=== PATIENT | female | born 1955 | race Caucasian/White ===

== ENCOUNTER 2021-04-02 10:02 | Outpatient (REF) | payer MEDICARE, SELFPAY ==
--- NOTE | ~2021-04-02 | XR_ITS ---
EXAMINATION: XR CHEST CLINICAL INFORMATION: Acute bronchitis. COMPARISON: None TECHNIQUE: 2 views of the chest were obtained. FINDINGS: The lungs are clear. The cardiomediastinal silhouette is normal in size. There is no pleural effusion or pneumothorax. No acute osseous abnormality. XR/XR chest 2V IMPRESSION: No acute cardiopulmonary findings.
[2021-04-02 11:23] LABS: Hemoglobin 15.6 g/dl (12.0-16.0); Mean Corpuscular HGB Conc 33.2 g/dl (31.0-35.0); Mean Corpuscular Hemoglobin 31.9 pg (27.0-33.0); Mean Corpuscular Volume 96.1 fL (80-98); Mean Platelet Volume 10.2 fL (9.4-12.3); Platelet Count 225 X10*3/uL (160-400); Red Blood Count 4.89 X10*6/uL (4.20-5.50); Red Cell Distribution Width 12.7 % (11.0-16.0); White Blood Count 8.5 X10*3/uL (4.8-10.8)
[2021-04-02 12:31] LABS: Anion Gap 15 (12-20); Blood Urea Nitrogen 10 mg/dL (9-16); Carbon Dioxide 27 mmol/L (22-29); Chloride 102 mmol/L (96-108); Estimated Glomerular Filt Rate > 60; Glucose Random 124 mg/dL (60-115); Potassium 4.9 mmol/L (3.3-5.1); Sodium 139 mmol/L (135-145)
== END 2021-04-02 10:03 | disposition home or self-care (01) ==
LOC: HO.HMGCX 10:02
PROVIDERS: PCP Internal Medicine; Visit Provider Physician Assistant
DX: J20.9 Acute bronchitis, unspecified (principal); I10 Essential (primary) hypertension
CPT/HCPCS: 36415; 71046; 80048; 85027

== ENCOUNTER 2021-04-30 13:49 | Outpatient (REF) | payer MEDICARE, SELFPAY ==
--- NOTE | ~2021-04-30 | XR_ITS ---
EXAMINATION: XR CHEST CLINICAL INFORMATION: Localized swelling, mass and lump COMPARISON: Chest 04/02/2021 TECHNIQUE: 2 views of the chest were obtained. FINDINGS: No significant abnormality is noted involving the heart, lungs, mediastinum, bony thorax or soft tissues. XR/XR chest 2V IMPRESSION: Unremarkable chest examination.
== END 2021-04-30 13:50 | disposition home or self-care (01) ==
LOC: HO.HMGCX 13:49
PROVIDERS: PCP Internal Medicine; Visit Provider Internal Medicine
DX: Z13.89 Encounter for screening for other disorder (principal)
CPT/HCPCS: 71046

== ENCOUNTER 2022-02-12 23:24 | Emergency (ER) | payer MEDICARE, SELFPAY ==
--- NOTE | ~2022-02-12 | XR_ITS ---
EXAMINATION: XR FOOT, RIGHT CLINICAL INFORMATION: Injury COMPARISON: None TECHNIQUE: AP, lateral, and oblique views of the right foot. FINDINGS: There is a fracture of the fourth digit proximal phalanx seen best on the oblique view. No intra-articular extension. Joint spaces are maintained. Mild soft tissue swelling . XR/XR foot RT 2V IMPRESSION: Fracture of the fourth digit proximal phalanx.
[2022-02-13 00:15] VITALS: BP 144/60; PULSE 64; RESP 18; TEMP 36.8; O2SAT 96; BMI 29.2
--- NOTE | 2022-02-13 04:22 | ED.LOWEXIN ---
HPI - Extremity Injury (Lower) General Chief Complaint: Extremity Injury, Lower Stated Complaint: broken toe R foot ? Time Seen by Provider: 02/13/22 04:22 Source: patient Mode of arrival: ambulatory Limitations: no limitations History of Present Illness HPI Narrative: While walking patient stubbed her right 4th toe into the baseboard complaining of pain in the right 4th toe no other injury Related Data Home Medications Medication Instructions Recorded Confirmed atenolol 50 mg tablet 50 mg PO DAILY 03/21/21 04/02/21 blood sugar diagnostic (OneTouch #10 ea 03/21/21 04/02/21 Verio test strips) cholecalciferol (vitamin D3) 25 25 mcg PO DAILY 03/21/21 04/02/21 mcg (1,000 unit) capsule clonazepam 0.5 mg tablet 0.5 mg PO TID PRN anxiety 03/21/21 04/02/21 metformin 500 mg tablet 500 mg PO BID 03/21/21 04/02/21 simvastatin 20 mg/5 mL (4 mg/mL) 20 mg PO BEDTIME 03/21/21 04/02/21 oral suspension Previous Rx's Medication Instructions Recorded amoxicillin 875 mg-potassium 1 tab PO BID #20 tabs 03/21/21 clavulanate 125 mg tablet (Augmentin) prednisone 20 mg tablet 20 mg PO .COMPLEX #18 tabs 03/21/21 azithromycin 250 mg tablet See Rx Instructions PO .COMPLEX #6 04/02/21 tabs Allergies Allergy/AdvReac Type Severity Reaction Status Date / Time tetracycline Allergy nausea Verified 04/30/21 13:20 Review of Systems Review of Systems: Yes all other systems are reviewed and are negative [facility] Social History Social History Advance Directives: No Advance Directives Information Provided: No Physical Exam Vital Signs: Vital Signs: Last Vital Signs Temp 98.3 F 02/13/22 00:15 Pulse 64 02/13/22 00:15 Resp 18 02/13/22 00:15 BP 144/60 H 02/13/22 00:15 Pulse Ox 96 02/13/22 00:15 O2 Del Method 02/13/22 00:15 BMI result Body Mass Index 29.2 Const: General: comfortable and no acute distress Extrem: Ankle/foot/toe images: 1. Tenderness at the base of right foot toe with slight swelling no obvious deformity neurovascular intact Procedures Orthopedic Splinting/Casting Injury #1: Lower Extremity Injury Location: toe Lower Extremity Immobilizer: april tape (Right 4th and 5th toe) Discharge Plan Discharge Clinical Impression: Toe fracture Patient Disposition: Home, Self-Care Instructions: Toe Fracture (ED) Additional Instructions: Apply april tape as advised Tylenol/ibuprofen for pain Prescriptions: No Action azithromycin 250 mg tablet See Rx Instructions PO .COMPLEX Qty: 6 0RF Rx Instructions: take 500 mg today (day 1), then 250 mg for 4 days (days 2-5) PO (DME) OneTouch Verio test strips Strip See Rx Instructions Not Applicable BID Qty: 10 Rx Instructions: As directed clonazepam 0.5 mg tablet 0.5 mg PO TID PRN (Reason: anxiety) atenolol 50 mg tablet 50 mg PO DAILY metformin 500 mg tablet 500 mg PO BID simvastatin 20 mg/5 mL (4 mg/mL) suspension 20 mg PO BEDTIME cholecalciferol (vitamin D3) 25 mcg (1,000 unit) capsule 25 mcg PO DAILY prednisone 20 mg tablet 20 mg PO .COMPLEX Qty: 18 0RF Rx Instructions: 20 mg PO 3 p.o. daily for 3 days followed by 2 p.o. daily for 3 days followed by 1 p.o. daily for 3 days; amoxicillin-pot clavulanate [Augmentin] 875-125 mg tablet 1 tab PO BID Qty: 20 0RF
--- NOTE | 2022-02-13 04:35 | PC.NURSE ---
This RN did not see this Pt.
== END 2022-02-13 04:36 | disposition home or self-care (01) ==
PROVIDERS: Emergency Provider Internal Medicine; PCP Physician Assistant
DX: S92.911A Unspecified fracture of right toe(s), initial encounter for closed fracture (principal); Y29.XXXA Contact with blunt object, undetermined intent, initial encounter; Y93.9 Activity, unspecified; Y92.009 Unspecified place in unspecified non-institutional (private) residence as the place of occurrence of the external cause; Y99.9 Unspecified external cause status; Z79.899 Other long term (current) drug therapy
CPT/HCPCS: 73620; 99282; 99283

== ENCOUNTER 2022-05-20 19:54 | Emergency (ER) | payer MEDICARE, SELFPAY ==
--- NOTE | ~2022-05-20 | XR_ITS ---
EXAMINATION: XR CHEST CLINICAL INFORMATION: Chest tightness. COMPARISON: 04/30/2021 chest radiographs. TECHNIQUE: Frontal view of the chest was obtained. FINDINGS: No significant abnormality is noted involving the heart, lungs, mediastinum, bony thorax or soft tissues. XR/XR chest 1V IMPRESSION: No acute cardiopulmonary process.
--- NOTE | 2022-05-20 19:58 | ECG_ITS ---
Test Reason : PALPITATIONS Blood Pressure : / mmHG Vent. Rate : 064 BPM Atrial Rate : 064 BPM P-R Int : 140 ms QRS Dur : 082 ms QT Int : 420 ms P-R-T Axes : 063 046 037 degrees QTc Int : 433 ms Normal sinus rhythm Normal ECG No previous ECGs available Referred By: Generic ED Physician Electronically Signed By:AMANDA SIMPSON
[2022-05-20 20:50] VITALS: BP 147/53; PULSE 63; RESP 16; TEMP 37.2; O2SAT 96; BMI 27.4
[2022-05-20 21:11] LABS: MANUAL DIFF FLAG NO
[2022-05-20 21:14] LABS: Basophils Percent Auto 0.4 % (0-2); Eosinophils Percent Auto 0.2 % (0-4); Hematocrit 43.4 % (37.0-47.0); Hemoglobin 14.8 g/dl (12.0-16.0); Imm Gran Abs Auto 0.02 X10*3/uL (0.00-0.03); Imm Gran Pct Auto 0.2 % (0.0-0.4); Lymphocytes Absolute Auto 3.9 X10*3/uL (1.2-4.9); Lymphocytes Percent Auto 41.4 % (20-40); Mean Corpuscular HGB Conc 34.1 g/dl (31.0-35.0); Mean Corpuscular Volume 93.9 fL (80.0-98.0); Monocytes Absolute Auto 0.7 X10*3/uL (0.1-1.2); Monocytes Percent Auto 7.5 % (2-11); Neutrophils Absolute Auto 4.8 x10*3/uL (2.0-8.3); Neutrophils Percent Auto 50.3 % (45-73); Platelet Count 224 X10*3/uL (160-400); Red Blood Count 4.62 X10*6/uL (4.20-5.50); Red Cell Distribution Width 12.5 % (11.0-16.0); White Blood Count 9.5 X10*3/uL (4.8-10.8)
[2022-05-20 21:22] LABS: D Dimer High Sensitivity 167 NG/ML
[2022-05-20 21:30] LABS: Alanine Aminotransferase 21 U/L (0-31); Albumin Level 4.5 g/dL (3.5-5.0); Alkaline Phosphatase 46 U/L (39-117); Anion Gap 17 (12-20); Aspartate Amino Transferase 17 U/L (5-31); Bilirubin Total 0.3 mg/dL (0.0-1.0); Blood Urea Nitrogen 17 mg/dL (9-16); Calcium 9.7 mg/dL (8.4-10.2); Carbon Dioxide 27 mmol/L (22-29); Chloride 101 mmol/L (96-108); Creatinine Clr Calc Pharmacy 53.6; Estimated Glomerular Filt Rate 56; Glucose Random 121 mg/dL (60-115); Magnesium 2.2 mg/dL (1.6-2.6); Potassium 4.2 mmol/L (3.3-5.1); Sodium 141 mmol/L (135-145); Total Protein 7.1 g/dL (6.5-8.0)
[2022-05-20 21:36] LABS: Troponin-I High Sensitivity < 3.5 ng/L (<3.5-17.0)
[2022-05-21 00:21] VITALS: BP 147/56; PULSE 60; RESP 16; TEMP 36.7; O2SAT 98
[2022-05-21 01:17] LABS: Troponin-I High Sensitivity < 3.5 ng/L (<3.5-17.0)
[2022-05-21 03:13] VITALS: BP 132/64; PULSE 51; RESP 16; TEMP 36.7; O2SAT 98
--- NOTE | 2022-05-21 03:36 | ED_ITS ---
HPI - Arrhythmia/Palpitations General Chief Complaint: Arrhythmia/Palpitations Stated Complaint: Palpitations/Chest tightness Time Seen by Provider: 05/21/22 03:36 Source: patient Mode of arrival: ambulatory Limitations: no limitations History of Present Illness HPI narrative: Patient has history of anxiety doses of Klonopin has been decreased lately feel more anxious complaining of heartbeats in our ER checked her blood pressure fluctuating from 160 to 140 systolic and 80-70 diastolic feels sometimes chest tightness sometimes dizzy unable to sleep last few nights Related Data Home Medications Medication Instructions Recorded Confirmed atenolol 50 mg tablet 50 mg PO DAILY 03/21/21 04/02/21 blood sugar diagnostic (OneTouch #10 ea 03/21/21 04/02/21 Verio test strips) cholecalciferol (vitamin D3) 25 25 mcg PO DAILY 03/21/21 04/02/21 mcg (1,000 unit) capsule clonazepam 0.5 mg tablet 0.5 mg PO TID PRN anxiety 03/21/21 04/02/21 metformin 500 mg tablet 500 mg PO BID 03/21/21 04/02/21 simvastatin 20 mg/5 mL (4 mg/mL) 20 mg PO BEDTIME 03/21/21 04/02/21 oral suspension Previous Rx's Medication Instructions Recorded amoxicillin 875 mg-potassium 1 tab PO BID #20 tabs 03/21/21 clavulanate 125 mg tablet (Augmentin) prednisone 20 mg tablet 20 mg PO .COMPLEX #18 tabs 03/21/21 azithromycin 250 mg tablet See Rx Instructions PO .COMPLEX #6 04/02/21 tabs hydroxyzine HCl 25 mg tablet 25 mg PO BID PRN anxiety #30 tabs 05/21/22 Allergies Allergy/AdvReac Type Severity Reaction Status Date / Time tetracycline Allergy nausea Verified 05/20/22 20:56 Review of Systems Review of Systems: Yes all other systems are reviewed and are negative PMF[facility] Social History Social History Advance Directives: No Physical Exam Vital Signs: Vital Signs: Last Vital Signs Temp 98.0 F 05/21/22 03:13 Pulse 51 05/21/22 03:13 Resp 16 05/21/22 03:13 BP 132/64 05/21/22 03:13 Pulse Ox 98 05/21/22 03:13 O2 Del Method 05/21/22 03:13 BMI result Body Mass Index 27.4 Appearance: Alert. Oriented X3. No acute distress. Anxious Eyes: PERRLA, No Nystagmus ENT: Pharynx normal. Oral Mucosa moist Neck: Normal inspection. Neck supple. CVS: Normal heart rate and rhythm. Pulses normal. Respiratory: No respiratory distress. Equal air entry bilateral, no wheezing/rales/rhonchi Abdomen: Soft and nontender. Bowel sounds are present, no mass palpable, no CVA tenderness Skin: Skin warm and dry. Normal skin color. Normal skin turgor. Extremities: No lower extremity edema. No calf tenderness Neuro: Oriented X 3. No motor deficit. No sensory deficit.No cerebellar signs , cranial nerves II-XII intact MDM - Arrhythmia/Palpitations MDM Narrative Medical decision making narrative: Patient with increased anxiety for sleep fluctuating blood pressure in the ER blood pressure is 132/64 a palpitation noticed no cardiac arrhythmias EKG normal 2 sets of troponin negative discharge patient home advised to start taking Atarax and follow-up with PCP Lab Data Attestation: I reviewed the patient's lab results. Result diagrams: 05/20/22 21:04 05/20/22 21:04 Labs: Lab Results 05/20/22 05/20/22 05/20/22 Range/Units 21:04 21:04 21:04 WBC 9.5 (4.8-10.8) X10*3/uL RBC 4.62 (4.20-5.50) X10*6/uL Hgb 14.8 (12.0-16.0) g/dl Hct 43.4 (37.0-47.0) % MCV 93.9 (80.0-98.0) fL MCH 32.0 (27.0-33.0) pg MCHC 34.1 (31.0-35.0) g/dl RDW 12.5 (11.0-16.0) % Plt Count 224 (160-400) X10*3/uL MPV 10.0 (9.4-12.3) fL Immature Gran % (Auto) 0.2 (0.0-0.4) % Neut % (Auto) 50.3 (45-73) % Lymph % (Auto) 41.4 H (20-40) % Edmunds % (Auto) 7.5 (2-11) % Eos % (Auto) 0.2 (0-4) % Baso % (Auto) 0.4 (0-2) % Lymph # (Auto) 3.9 (1.2-4.9) X10*3/uL Edmunds # (Auto) 0.7 (0.1-1.2) X10*3/uL Eos # (Auto) 0.0 (0.0-0.4) X10*3/uL Baso # (Auto) 0.0 (0.0-0.2) X10*3/uL Abs Immat Gran (auto) 0.02 (0.00-0.03) X10*3/uL Absolute Neuts (auto) 4.8 (2.0-8.3) x10*3/uL Absolute Nucleated RBC 0.000 (0.0-0.012) X10*3/uL Nucleated RBC % (auto) 0.0 (0.0-0.2) /100WBC D-Dimer High Sensitivty 167 NG/ML Sodium 141 (135-145) mmol/L Potassium 4.2 (3.3-5.1) mmol/L Chloride 101 (96-108) mmol/L Carbon Dioxide 27 (22-29) mmol/L Anion Gap 17 (12-20) BUN 17 H (9-16) mg/dL Creatinine 0.98 (0.5-1.4) mg/dL Estim Creat Clear Calc 53.6 Estimated GFR 56 Random Glucose 121 H (60-115) mg/dL Calcium 9.7 (8.4-10.2) mg/dL Magnesium 2.2 (1.6-2.6) mg/dL Total Bilirubin 0.3 (0.0-1.0) mg/dL AST 17 (5-31) U/L ALT 21 (0-31) U/L Alkaline Phosphatase 46 (39-117) U/L Troponin I High Sens (<3.5-17.0) ng/L Total Protein 7.1 (6.5-8.0) g/dL Albumin 4.5 (3.5-5.0) g/dL 05/20/22 05/21/22 Range/Units 21:04 00:39 WBC (4.8-10.8) X10*3/uL RBC (4.20-5.50) X10*6/uL Hgb (12.0-16.0) g/dl Hct (37.0-47.0) % MCV (80.0-98.0) fL MCH (27.0-33.0) pg MCHC (31.0-35.0) g/dl RDW (11.0-16.0) % Plt Count (160-400) X10*3/uL MPV (9.4-12.3) fL Immature Gran % (Auto) (0.0-0.4) % Neut % (Auto) (45-73) % Lymph % (Auto) (20-40) % Edmunds % (Auto) (2-11) % Eos % (Auto) (0-4) % Baso % (Auto) (0-2) % Lymph # (Auto) (1.2-4.9) X10*3/uL Edmunds # (Auto) (0.1-1.2) X10*3/uL Eos # (Auto) (0.0-0.4) X10*3/uL Baso # (Auto) (0.0-0.2) X10*3/uL Abs Immat Gran (auto) (0.00-0.03) X10*3/uL Absolute Neuts (auto) (2.0-8.3) x10*3/uL Absolute Nucleated RBC (0.0-0.012) X10*3/uL Nucleated RBC % (auto) (0.0-0.2) /100WBC D-Dimer High Sensitivty NG/ML Sodium (135-145) mmol/L Potassium (3.3-5.1) mmol/L Chloride (96-108) mmol/L Carbon Dioxide (22-29) mmol/L Anion Gap (12-20) BUN (9-16) mg/dL Creatinine (0.5-1.4) mg/dL Estim Creat Clear Calc Estimated GFR Random Glucose (60-115) mg/dL Calcium (8.4-10.2) mg/dL Magnesium (1.6-2.6) mg/dL Total Bilirubin (0.0-1.0) mg/dL AST (5-31) U/L ALT (0-31) U/L Alkaline Phosphatase (39-117) U/L Troponin I High Sens < 3.5 < 3.5 (<3.5-17.0) ng/L Total Protein (6.5-8.0) g/dL Albumin (3.5-5.0) g/dL ECG Data Attestation: I personally reviewed and interpreted this ECG as follows: Interpretation: No sinus rhythm heart rate 64 beats per minute normal intervals normal axis no acute ST changes Discharge Plan Discharge Clinical Impression: Anxiety, Benign essential HTN Patient Disposition: Home, Self-Care Instructions: Chronic Hypertension (ED), Anxiety (ED) Additional Instructions: [place] Klonopin and start taking Atarax for sleep Check blood pressure daily and follow with PCP it should be less than 135/85 Prescriptions: New hydroxyzine HCl 25 mg tablet 25 mg PO BID PRN (Reason: anxiety) Qty: 30 0RF No Action azithromycin 250 mg tablet See Rx Instructions PO .COMPLEX Qty: 6 0RF Rx Instructions: take 500 mg today (day 1), then 250 mg for 4 days (days 2-5) PO (DME) OneTouch Verio test strips Strip See Rx Instructions Not Applicable BID Qty: 10 Rx Instructions: As directed clonazepam 0.5 mg tablet 0.5 mg PO TID PRN (Reason: anxiety) atenolol 50 mg tablet 50 mg PO DAILY metformin 500 mg tablet 500 mg PO BID simvastatin 20 mg/5 mL (4 mg/mL) suspension 20 mg PO BEDTIME cholecalciferol (vitamin D3) 25 mcg (1,000 unit) capsule 25 mcg PO DAILY prednisone 20 mg tablet 20 mg PO .COMPLEX Qty: 18 0RF Rx Instructions: 20 mg PO 3 p.o. daily for 3 days followed by 2 p.o. daily for 3 days followed by 1 p.o. daily for 3 days; amoxicillin-pot clavulanate [Augmentin] 875-125 mg tablet 1 tab PO BID Qty: 20 0RF
[2022-05-21 04:00] VITALS: BP 160/67; PULSE 54; RESP 14; TEMP 36.6
[2022-05-21] MEDS: clonazePAM 1 MG TABLET PO (04:13)
--- NOTE | 2022-05-21 04:18 | PC.NURSE ---
Pt aox4. Breaths are even and unlabored. No apparent distress. Discharge instructions provided to pt. Pt verbalizes understanding.
== END 2022-05-21 04:19 | disposition home or self-care (01) ==
PROVIDERS: Emergency Provider Internal Medicine; PCP Internal Medicine
DX: F41.9 Anxiety disorder, unspecified (principal); I10 Essential (primary) hypertension; Z79.84 Long term (current) use of oral hypoglycemic drugs; Z79.02 Long term (current) use of antithrombotics/antiplatelets; Z79.899 Other long term (current) drug therapy
CPT/HCPCS: 36415; 71045; 80053; 83735; 84484; 85025; 85379; 93005; 99283; 99284

== ENCOUNTER 2023-06-19 11:54 | Emergency (ER) | payer MEDICARE, SELFPAY ==
[2023-06-19 11:58] VITALS: BP 183/62; PULSE 69; RESP 18; TEMP 36.7; O2SAT 96; BMI 26.6
--- NOTE | 2023-06-19 12:00 | ED.GENADULT ---
HPI - General Adult General Chief complaint: General Medical Stated complaint: med refill History of Present Illness HPI narrative: Patient patient with no complaint other than that she has run out of for prescription for clonazepam, she did call her doctor and the doctor said the refill will be ready on Wednesday but she ran out on Wednesday so she is looking for 2 days worth of her twice a day 0.5 prescription She denies any crisis she is not suicidal homicidal not hearing voices not experience any medical or psychiatric emergency now Related Data Home Medications Medication Instructions Recorded Confirmed atenolol 50 mg tablet 50 mg PO DAILY 03/21/21 04/02/21 blood sugar diagnostic (OneTouch #10 ea 03/21/21 04/02/21 Verio test strips) cholecalciferol (vitamin D3) 25 25 mcg PO DAILY 03/21/21 04/02/21 mcg (1,000 unit) capsule clonazepam 0.5 mg tablet 0.5 mg PO TID PRN anxiety 03/21/21 04/02/21 metformin 500 mg tablet 500 mg PO BID 03/21/21 04/02/21 simvastatin 20 mg/5 mL (4 mg/mL) 20 mg PO BEDTIME 03/21/21 04/02/21 oral suspension Previous Rx's Medication Instructions Recorded amoxicillin 875 mg-potassium 1 tab PO BID #20 tabs 03/21/21 clavulanate 125 mg tablet (Augmentin) prednisone 20 mg tablet 20 mg PO .COMPLEX #18 tabs 03/21/21 azithromycin 250 mg tablet See Rx Instructions PO .COMPLEX #6 04/02/21 tabs hydroxyzine HCl 25 mg tablet 25 mg PO BID PRN anxiety #30 tabs 05/21/22 clonazepam 0.5 mg tablet 0.5 mg PO BID #5 tabs 06/19/23 Allergies Allergy/AdvReac Type Severity Reaction Status Date / Time tetracycline Allergy nausea Verified 06/19/23 11:58 [facility] Past Medical History Source: nursing notes reviewed Physical Exam ED Vital Signs: Vital Signs - 24 hr 06/19/23 11:58 Temperature 98.0 F Pulse Rate 69 Respiratory Rate 18 Blood Pressure 183/62 H Pulse Oximetry 96 BMI result Body Mass Index 26.6 General appearance no distress Head is normocephalic atraumatic The neck is supple Respiratory no distress Extremities full range of motion x4 Neuro gait and balance are normal, interaction conversation expression and comprehension are all normal, motor is 5/5 x4 Course Course Course Narrative: Well-appearing patient in no distress looking for just a 2 day refill of her clonazepam which she takes for anxiety and is not any crisis no medical complaint is given a 2 day prescription and will follow with her doctor Discharge Plan Discharge Clinical Impression: Medication refill Patient Disposition: Home, Self-Care Prescriptions: New clonazepam 0.5 mg tablet 0.5 mg PO BID Qty: 5 0RF No Action hydroxyzine HCl 25 mg tablet 25 mg PO BID PRN (Reason: anxiety) Qty: 30 0RF azithromycin 250 mg tablet See Rx Instructions PO .COMPLEX Qty: 6 0RF Rx Instructions: take 500 mg today (day 1), then 250 mg for 4 days (days 2-5) PO (DME) OneTouch Verio test strips Strip See Rx Instructions Not Applicable BID Qty: 10 Rx Instructions: As directed clonazepam 0.5 mg tablet 0.5 mg PO TID PRN (Reason: anxiety) atenolol 50 mg tablet 50 mg PO DAILY metformin 500 mg tablet 500 mg PO BID simvastatin 20 mg/5 mL (4 mg/mL) suspension 20 mg PO BEDTIME cholecalciferol (vitamin D3) 25 mcg (1,000 unit) capsule 25 mcg PO DAILY prednisone 20 mg tablet 20 mg PO .COMPLEX Qty: 18 0RF Rx Instructions: 20 mg PO 3 p.o. daily for 3 days followed by 2 p.o. daily for 3 days followed by 1 p.o. daily for 3 days; amoxicillin-pot clavulanate [Augmentin] 875-125 mg tablet 1 tab PO BID Qty: 20 0RF Interventions: ED Discharge Assessment Last Done: 06/19/23 12:07
== END 2023-06-19 12:10 | disposition home or self-care (01) ==
PROVIDERS: Emergency Provider Emergency Medicine; PCP Internal Medicine
DX: Z76.0 Encounter for issue of repeat prescription (principal); F41.9 Anxiety disorder, unspecified
CPT/HCPCS: 99282

== ENCOUNTER 2023-10-22 19:25 | Emergency (ER) | payer MEDICARE, SELFPAY ==
[2023-10-22 19:27] VITALS: PULSE 55; RESP 18; TEMP 36.6; O2SAT 98; BMI 28.3
--- NOTE | 2023-10-22 19:30 | ED_ITS ---
HPI - General Adult General Chief complaint: Urogenital-Female Stated complaint: UTI Time Seen by Provider: 10/22/23 19:30 Source: patient Mode of arrival: ambulatory Limitations: no limitations History of Present Illness HPI narrative: Patient is a 68 year old assigned female at with no reported medical history presenting to the emergency department today with painful urination. Patient states that over the last couple days she has had painful urination. Patient denies any dizziness, lightheadedness, abdominal pain, nausea, vomiting, fever, chills, blurry vision, double vision, loss of vision, chest pain, difficulty breathing, shortness of breath, back pain, night sweats, increased urinary frequency, increased urinary urgency, blood in her urine or stool, syncope or a near syncopal episode, recent trauma or falls, bowel incontinence, bladder incontinence, bowel retention, bladder retention, or any other complaints at this time. Onset (ago): day(s) Severity: mild Relieving factors: none Exacerbating factors: none Associated symptoms: denies other symptoms Treatments prior to arrival: none Related Data Home Medications Medication Instructions Recorded Confirmed atenolol 50 mg tablet 50 mg PO DAILY 03/21/21 04/02/21 blood sugar diagnostic (OneTouch #10 ea 03/21/21 04/02/21 Verio test strips) cholecalciferol (vitamin D3) 25 25 mcg PO DAILY 03/21/21 04/02/21 mcg (1,000 unit) capsule clonazepam 0.5 mg tablet 0.5 mg PO TID PRN anxiety 03/21/21 04/02/21 metformin 500 mg tablet 500 mg PO BID 03/21/21 04/02/21 simvastatin 20 mg/5 mL (4 mg/mL) 20 mg PO BEDTIME 03/21/21 04/02/21 oral suspension Previous Rx's Medication Instructions Recorded amoxicillin 875 mg-potassium 1 tab PO BID #20 tabs 03/21/21 clavulanate 125 mg tablet (Augmentin) prednisone 20 mg tablet 20 mg PO .COMPLEX #18 tabs 03/21/21 azithromycin 250 mg tablet See Rx Instructions PO .COMPLEX #6 04/02/21 tabs hydroxyzine HCl 25 mg tablet 25 mg PO BID PRN anxiety #30 tabs 05/21/22 clonazepam 0.5 mg tablet 0.5 mg PO BID #5 tabs 06/19/23 cefuroxime axetil 250 mg tablet 250 mg PO BID 7 days #14 tabs 10/22/23 Allergies Allergy/AdvReac Type Severity Reaction Status Date / Time tetracycline Allergy nausea Verified 10/22/23 19:27 Review of Systems Constitutional: Constitutional: Reports no additional constitutional complaints, Denies chills, Denies fever(s) and Denies night sweats Eyes: Eyes: Reports no additional eye complaints, Denies blurry vision, Denies change in vision, Denies diplopia, Denies eye discharge, Denies loss of vision and Denies eye pain ENT: Denies dizziness Cardiovascular: Cardiovascular: Reports no additional cardiovascular complaints, Denies chest pain, Denies lightheadedness, Denies Loss of Consciousness and Denies dyspnea Respiratory: Respiratory: Reports no additional respiratory complaints and Denies dyspnea Gastrointestinal: Gastrointestinal: Reports no additional gastrointestinal complaints, Denies abdominal pain, Denies melena, Denies hematochezia, Denies change in bowel habits and Denies change in stool character Genitourinary: Genitourinary: Denies hematuria, Denies urinary frequency, Reports dysuria, Denies urinary incontinence, Denies urinary hesitancy and Denies urinary urgency Musculoskeletal: Musculoskeletal: Reports no additional musculoskeletal complaints, Denies numbness and Denies tingling Neurologic: Denies dizziness, Denies loss of vision, Denies numbness and Denies tingling Psychiatric: Psychiatric: Reports no additional psychiatric complaints Endocrine: Endocrine: Reports no additional endocrine complaints Hematologic/Lymphatic: Hematologic/Lymphatic: Reports no additional hematologic/lymphatic complaints Allergic/Immunologic: Allergic/Immunologic: Reports no additional allergic/immunologic complaints PMFSH Past Medical History Attestation statement: The following information was validated with the patient. Source: old records reviewed and nursing notes reviewed Social History Social History Advance Directives: No Advance Directives Information Provided: No Physical Exam ED Vital Signs: Vital Signs - 24 hr 10/22/23 19:27 Temperature 97.8 F Pulse Rate 55 Respiratory Rate 18 Pulse Oximetry 98 Oxygen Delivery Method Room Air BMI result Body Mass Index 28.3 Const General: cooperative, no acute distress, alert and awake Nutritional Appearance: well nourished Orientation/consciousness: patient oriented x3 Limitations: no limitations HENMT Head: Yes normal to inspection and Yes atraumatic Ears: hearing grossly normal bilaterally and external ears normal General nose exam: Normal external nose present, no nasal discharge noted and no epistaxis Face and sinus: Yes normal facial exam, No abrasion and No laceration Mouth: Normal oral and palatal mucosa present, no drooling and no muffled voice Eyes General: appearance normal, both eyes and all related structures Periorbital: periorbital findings normal Eyelids: Yes eyelids normal Conjunctivae: conjunctivae normal Pupils: Equal, round and reactive pupils present EOM: EOMs intact bilaterally Neck Neck: Yes normal visual inspection, Yes full ROM and Yes no lymphadenopathy Chest Chest palpation & inspection: normal inspection of the chest Resp Effort & Inspection: normal respiratory effort and able to speak in complete sentences GI Inspection: Yes normal to inspection Neuro General: patient oriented x3 and moves all extremities Cranial nerves: Yes Equal, round and reactive pupils present Cognition (Neuro): normal cognition Motor exam (neuro): 5/5 motor strength present throughout Sensory Exam: Normal double simultaneous stimulation for sensation Coordination: [id number] test normal Extrem General: Yes normal to inspection, Yes full ROM and Yes capillary refill normal Psych Appearance: grossly normal Mental Status: mental status grossly normal Affect: normal affect Attitude: cooperative Thought process: Normal thought process present Thought content: Normal thought content present Insight: Good insight present (Psych) Course Course Course Narrative: RME performed by Silvia Person PA-C. Patient is a 68 year old assigned female at presenting to the emergency department with pain with urination and concern for UTI. Detailed physical exam and review of systems are deferred to the speech clinician. Labs ordered. Patient placed back in the waiting room pending room availability and results. Medical Decision Making Medical Decision Making MDM Narrative: Patient is a 68 year old assigned female at with no reported medical history presenting to the emergency department today with painful urination. Patient's physical exam was unremarkable. Patient's urine showed evidence of a UTI. I explained my physical exam findings as well as all test results to the patient. I answered all questions asked by the patient. I stressed the importance of the patient taking her medication as prescribed. I stressed the importance of the patient following up with her primary care provider. I stressed the importance of the patient returning to the emergency department immediately if her symptoms were to worsen or if she were to develop any dizziness, shortness of breath, difficulty breathing, chest pain, blurry vision, loss of vision, nausea, vomiting, abdominal pain, fever, chills, back pain, or any other complaints. Patient verbalized agreement and understanding with this treatment plan and discharge. Differential Diagnosis Differential Diagnoses: The differential diagnosis associated with the presentation includes UTI Cystitis Pyelonephritis Admission/Observation Consideration of admission/observation: Escalation of care including admission/observation considered Patient would have been admitted to the hospital had her work up had any findings where hospital admission was appropriate and her clinical presentation warranted hospital admission. Lab Data [facility] Lab Attestation statement: I reviewed the patient's lab results. My interpretation of these results are in the [facility] Rationale portion of this note. Labs: Lab Results 10/22/23 Range/Units 19:42 Urine Color Dark Yellow Urine Appearance Cloudy Urine pH 6.0 (5.0-9.0) Ur Specific [place] 1.015 (1.005-1.025) Urine Protein Trace (Neg-Trace) mg/dL Urine Glucose (UA) Negative (Negative) mg/dL Urine Ketones Negative (Negative) mg/dL Urine Blood Moderate (2+) H (Negative) Urine Nitrite Positive H (Negative) Ur Leukocyte Esterase Large (3+) H (Negative) Urine RBC 6-10 H (0-2) /HPF Urine WBC >50 H (0-5) /HPF Ur Squamous Epith Cells 6-10 (0-2) /HPF Urine Bacteria 4+ (None Seen) Hyaline Casts 0-2 (0-2) /LPF Prescription Management I considered prescription management with: Antibiotic (patient prescribed an antibiotic for a UTI) Discharge Plan Discharge Clinical Impression: Acute UTI Patient Disposition: Home, Self-Care Instructions: Urinary Tract Infection in Women (DC) Additional Instructions: Follow up with your primary care provider. Return to the emergency department immediately if your symptoms worsen or if you develop any dizziness, shortness of breath, difficulty breathing, chest pain, blurry vision, loss of vision, nausea, vomiting, abdominal pain, fever, chills, back pain, or any other complaints. Prescriptions: New cefuroxime axetil 250 mg tablet 250 mg PO BID 7 Days Qty: 14 0RF No Action hydroxyzine HCl 25 mg tablet 25 mg PO BID PRN (Reason: anxiety) Qty: 30 0RF clonazepam 0.5 mg tablet 0.5 mg PO BID Qty: 5 0RF azithromycin 250 mg tablet See Rx Instructions PO .COMPLEX Qty: 6 0RF Rx Instructions: take 500 mg today (day 1), then 250 mg for 4 days (days 2-5) PO (DME) OneTouch Verio test strips Strip See Rx Instructions Not Applicable BID Qty: 10 Rx Instructions: As directed clonazepam 0.5 mg tablet 0.5 mg PO TID PRN (Reason: anxiety) atenolol 50 mg tablet 50 mg PO DAILY metformin 500 mg tablet 500 mg PO BID simvastatin 20 mg/5 mL (4 mg/mL) suspension 20 mg PO BEDTIME cholecalciferol (vitamin D3) 25 mcg (1,000 unit) capsule 25 mcg PO DAILY prednisone 20 mg tablet 20 mg PO .COMPLEX Qty: 18 0RF Rx Instructions: 20 mg PO 3 p.o. daily for 3 days followed by 2 p.o. daily for 3 days followed by 1 p.o. daily for 3 days; amoxicillin-pot clavulanate [Augmentin] 875-125 mg tablet 1 tab PO BID Qty: 20 0RF Referrals: Fortino Seth MD [Primary Care Provider] - Interventions: ED Discharge Assessment Last Done: 10/22/23 20:29 Discharge Date/Time: 10/22/23 20:30 Print Language: Bulgarian
[2023-10-22 19:49] LABS: Appearance Urine Cloudy; Color Urine Dark Yellow; Glucose Urine UA Negative (Negative); Leukocyte Esterase Urine Large (3+) (Negative); Nitrite Urine Positive (Negative); Specific Gravity - Urine 1.015 (1.005-1.025); UMIC TRIGGER UACC YES; Urine Blood Moderate (2+) (Negative); Urine Ketones Negative (Negative); Urine Protein Trace mg/dL (Neg-Trace)
[2023-10-22 19:59] LABS: Bacteria Urine 4+ (None Seen); Hyaline Casts Urine 0-2 /LPF (0-2); UACC Culture Trigger YES; WBC Urine >50 /HPF (0-5)
== END 2023-10-22 20:30 | disposition home or self-care (01) ==
PROVIDERS: Physician Assistant Medical; Emergency Provider Emergency Medicine Emergency Medical Services; PCP Internal Medicine
DX: N39.0 Urinary tract infection, site not specified (principal)
CPT/HCPCS: 81001; 87086; 87088; 87186; 99283; 99284